=== PATIENT | male | born 1990 | race Caucasian/White ===

== ENCOUNTER → 2021-11-29 22:34 | Emergency (ER) | payer OTHER ==
--- NOTE | 2021-11-29 22:34 | NUR ---
BROUGHT IN BY CHRISTEN ORTIZ FOR OK TO BOOK AND BLOOD DRAW. OFFICER DID NOT WANT TO WAIT AND STATED HE WAS GOING TO [facility] AND WILL HAVE BLOOD DRAWN AT STATION. LEFT WITHOUT BEING SEEN
== END | disposition left against medical advice (07) ==
LOC: SED 22:34
DX: Z02.83 Encounter for blood-alcohol and blood-drug test (principal); Z53.21 Procedure and treatment not carried out due to patient leaving prior to being seen by health care provider